=== PATIENT | male | born 1940 | race Caucasian/White ===

== ENCOUNTER 2016-08-29 13:11 | Emergency (ER) | payer BC ==
--- NOTE | 2016-08-29 13:36 | ED Physician Chart ---
Chief Complaint/HPI - Patient Information Date Seen:: 08/29/16 Time Seen:: 13:36 Chief Complaint:: LT ANKLE FOOT PAIN History of Present Illness:: This 75-year-old male was hiking in the [place] above [place] yesterday when he twisted his left ankle. His ankle and foot were very painful yesterday and somewhat less so today. So noted ecchymotic discoloration over the lateral ankle and the lateral foot. No other injuries. He has taken ibuprofen with relatively good pain relief. Patient is [facility] at [facility]. Allergies:: Allergies Allergy/AdvReac Type Severity Reaction Status Date / Time No Known Allergies Allergy Verified 08/29/16 13:33 Review of Systems - Review of Systems General/Constitutional: No fever, No chills, No weakness, No diaphoresis, No loss of appetite Skin: No skin lesions, No rash, Bruising Head: No headache, No light-headedness Eyes: No loss of vision, No diplopia ENT: No earache, No sore throat, No tinnitus Neck: No neck pain, No swelling, No thyromegaly, No stiffness, No mass noted Cardio Vascular: No chest pain, No orthopnea, No edema Pulmonary: No SOB, No cough, No sputum GI: No nausea, No vomiting, No diarrhea, No pain, Constipation, Other ( states he gets constipated when he uses narcotic medications.) G/U: No dysuria, No frequency, No hematuria Musculoskeletal: Bone or joint pain (bone and joint pain localized to the left ankle and foot.) Past Medical History - Past Medical History Past Medical History: No significant medical hx Family Medical History - Family Member Mother Hx Family Cancer: No Hx Family Coronary Artery Disease: No Hx Family Congestive Heart Failure: No Hx Family Stroke: No Hx Family Diabetes: No Hx Family Dementia: No Hx Family HIV: No Hx Family Hepatitis: No Hx Family Tuberculosis: No Physical Exam - Physical Examination General/Constitutional: Well-developed, well-nourished, Alert, No distress, Non- toxic appearing, Ambulatory Other Gen/Cons comments:: Patient appears to be much younger than his stated age of 75. Head: Atraumatic Eyes: Lids, conjuctiva normal, PERRL, EOMI Skin: No rash Other Skin comments:: The patient had moderate edema and Economic discoloration over the lateral aspect of his left ankle. There were no breaks in the skin and no significant deformity. ENMT: External ears, nose nl, Lips, teeth, gums nl, Oropharynx nl, Tonsils nl Neck: Nontender, Full ROM w/o pain, No JVD, No nuchal rigidity, No mass Respiratory: Nl effort/Exclusion, Clear to Auscultation, No Wheeze/Rhonchi/Rales Cardio Vascular: RRR, No murmur, gallop, rubs, NL S1 S2 GI: No tenderness/rebounding/guarding, No organomegaly, No hernia, Nondistended : No CVA tenderness Other Extremities comments:: the patient has no proximal fibular tenderness. There is economic discoloration and swelling over the lateral aspect of the left ankle. The ecchymosis extends into the lateral aspect of the left foot. No deformities are noted. There is point tenderness over the lateral malleolus of the ankle. There is also point tenderness over the proximal and of the fifth metatarsal. Sensation is intact to light touch in the left lower extremity. Good pulses and capillary refill in the left foot. Neuro/Psych: Alert/oriented, Normal sensory exam, Normal motor strength, Judgement/insight normal, Mood normal Other Neuro/Psych comments:: The patient's gait was limited due to pain in the left ankle and foot. Labs/Radiology/EKG Results - Lab Results Results: Three views of the left ankle: no fractures. Normal spacing of the joints. Mild soft tissue swelling over the lateral aspect. No radio opaque foreign bodies. Impression: no acute traumatic findings. Three views of the left foot: No fractures. No soft tissue swelling. No radiopaque foreign bodies. Impression: no acute dramatic findings. Assessment - Assessment General Assessment: CASE SUMMARY: the 75-year-old male sustained an injury to his left ankle and foot while hiking in the mountains yesterday. He rates the pain as a 4/10 and has been taking ibuprofen which helps. On physical examination there was significant ecchymotic discoloration and mild swelling over the lateral aspect of the left ankle and foot. No significant deformities were present. X-ray studies showed no evidence of acute traumatic injury. The patient was placed in a gel splint and provided with crutches. He was advised to [facility] in one to two weeks if not improving. He was further advised to return to the emergency department if there was any significant worsening of his symptoms. The patient was offered a prescription for narcotic pain medications and the Declined. Discharged in stable condition. MDM DDX LT. ANKLE/FOOT INJURY: NOT Closed fracture based on x-ray studies. NOT Open fracture based on physical examination. NOT Joint dislocation based on physical examination and x-ray studies. ED Septic Shock - . Is Septic Shock (SBP<90, OR Lactate>4 mmol\L) present?: No Reassessment (Disposition) - Reassessment Reassessment Condition:: Improved - Aftercare/Follow up Instructions Aftercare/Follow-Up Instructions:: Counseled pt & family regarding lab results/ diagnosis & need follow up ED Discharge Plan - Patient Disposition Admit/Discharge/Transfer: PT DISCHARGED HOME Condition at Disposition: Improved Instructions: Stirrup Ankle Brace, [id number], Ankle Sprain, [id number]
--- NOTE | 2016-08-30 09:30 | Diagnostic Imaging Report ---
Left foot (3 views) HISTORY: Pain No definite acute bony abnormality seen at this time. No definite fractures. Joint spaces appear normal. IMPRESSION: 1. No definite acute bony amenities. In the presence of recent trauma and persistent symptoms, a repeat radiograph in 5-7 days may be helpful for detection of a subtle or occult fracture.
--- NOTE | 2016-08-30 09:31 | Diagnostic Imaging Report ---
Left ankle (3 views) HISTORY: Pain, trauma Soft tissue swelling noted over the lateral aspect of the ankle. No acute bony amenities seen at this time. No definite fractures. Joint spaces appear normal. IMPRESSION: 1. Soft tissue swelling over the lateral aspect of the ankle 2. No definite acute bony abnormalities. In the presence of recent trauma and persistent symptoms, a repeat radiograph in 5-7 days may be helpful for detection of a subtle or occult fracture.
== END 2016-08-29 14:44 | disposition home or self-care (01) ==
LOC: ER 13:11
DX: M25.572 Pain in left ankle and joints of left foot (principal)
CPT/HCPCS: 73610-TC; 73630-TC-LT; Z7502